=== PATIENT | female | born 1980 | race Caucasian/White ===

== ENCOUNTER 2016-03-10 05:34 | Inpatient (IN) | payer BC ==
--- NOTE | 2016-03-07 19:21 | GHP ---
[f rep st] PREOP HISTORY AND PHYSICAL Amended report PLANNED PROCEDURE: Repeat low transverse section. INDICATION: Patient is a 35-year-old, 3, para 1-0-1-1, who had a growth ultrasound performed at 35 and 4/7 weeks for a history of an LGA baby. The patient, during that ultrasound, a prominent umbilical vein, possible umbilical varices was noted, and patient had a Maternal- Medicine consult which discussed that previous data has shown a correlation with intrauterine demise associated with umbilical vein varix. However, more recent literature is inconsistent with findings of this, but for this reason, recommendation is that the patient be delivered between 38 and 39 weeks gestation. The patient has a history of a previous low transverse section, so if her cervix is not favorable, she will proceed with a repeat low transverse section. The patient would like to have a vaginal after section, but is aware that if her cervix is not favorable, she would not be a candidate for induction. MEDICAL HISTORY: Significant for unexplained infertility, history of cervical dysplasia, asthma, hypothyroidism, history of pyelonephritis x1. MEDICATIONS: vitamins and iron. SURGICAL HISTORY: Egg retrieval x2, section, LEEP excision, cryo surgery. ALLERGIES: Latex. SOCIAL HISTORY: Patient is . 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 She denies tobacco, alcohol or drug use. FAMILY MEDICAL HISTORY: Noncontributory. 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 Period is every 28 days, lasting 5 days. She is a 3, para 1-0-1-1. In 2007, she had a voluntary termination of which was done with medication. In 2014, she had a primary low transverse section for arrest of descent of a 9 pounds, 6 ounce at 40 and 2/7 weeks. 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 Current was conceived by in vitro fertilization with male factor due to male factor infertility. 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 Patient does have a history of cervical dysplasia. She had cryosurgery and a LEEP in 2004. Repeat Paps have all been negative. The patient has a history of HPV, but no other sexually transmitted diseases. PHYSICAL EXAM: VITAL SIGNS: Stable. GENERAL APPEARANCE: She is alert and oriented x3. HEART: Rate is regular, regular. LUNGS: Clear to auscultation bilaterally. ABDOMEN: Gravid, nondistended, nontender. EXTREMITIES: Reveal no calf tenderness or edema. LABS: Blood type A positive, antibody screen negative. Rubella immune. GBS is still pending. HBsAg negative. HIV negative. Her 50 g glucose was 94. Most recent growth ultrasound was done with Maternal Medicine on March 02 which showed estimated weight of the 59th percentile. ASSESSMENT AND PLAN: A 35-year-old, 3, para 1-0-1-1, who will be 38 weeks gestation, who will have a repeat low transverse section for umbilical vein varix. The patient opted to have a vaginal after section prior to that, so she will be assessed for cervical dilation the day before her scheduled surgery. /[id number]/MODL Add acc#, 03/13/16, oneyda RICO
[2016-03-10] MEDS ORDERED: CITRIC ACID/SODIUM CITRATE 30 ML UDCUP PO ONE (05:59)
[2016-03-10] MEDS ORDERED: LR 500 ML IV ONE (05:59)
[2016-03-10] MEDS ORDERED: ceFAZolin 2 GM/DEXTROSE 100 ML IV ONE (05:59)
[2016-03-10] MEDS ORDERED: LR 1,000 ML IV SCH (06:00)
[2016-03-10 06:24] LABS: % IMMATURE GRANULYOCYTES 0.7 % (0.0-1.1); ABSOLUTE IMMATURE GRANULOCYTES 0.09 10^3/uL (0.00-0.10); ADD DIFF? NO; ADD MORPH? NO; ADD SCAN? NO; ATYPICAL LYMPHOCYTE FLAG 0 (0-99); FRAGMENT RBC FLAG 0 (0-99); HEMATOCRIT 33.9 % (38.0-47.0); HEMOGLOBIN 11.7 g/dL (12.6-16.3); LEFT SHIFT FLG 0 (0-99); LIPEMIA HEMOLYSIS FLAG 90 (0-99); MEAN CELL HEMOGLOBIN 30.2 pg (27.9-34.1); MEAN CELL HEMOGLOBIN CONCENTR. 34.5 g/dL (32.4-36.7); MEAN CELL VOLUME 87.6 fL (81.5-99.8); MEAN PLATELET VOLUME 10.2 fL (8.7-11.7); PLATELET CLUMPS FLAG 10 (0-99); PLATELET COUNT 332 10^3/uL (150-400); RED BLOOD CELL COUNT 3.87 10^6/uL (4.18-5.33); RED CELL DISTRIBUTION WIDTH 13.6 % (11.5-15.2)
[2016-03-10] MEDS ORDERED: fentaNYL 100 MCG/2 ML INJ ONE (07:28)
[2016-03-10] MEDS ORDERED: ONDANSETRON 4 MG/2 ML VIAL ONE (07:29)
[2016-03-10] MEDS ORDERED: morphINE PF 5 MG/10 ML INJ ONE (07:29)
[2016-03-10] MEDS ORDERED: OXYTOCIN 100 UNITS/10 ML VIAL ONE (07:38)
[2016-03-10] MEDS ORDERED: METOCLOPRAMIDE 10 MG/2 ML VIAL IVP PRN (07:42)
[2016-03-10] MEDS ORDERED: LABETALOL HCL 5 MG/ML 20 ML MDV IVP PRN (07:42)
[2016-03-10] MEDS ORDERED: PHENYLEPHRINE HCL 100 MCG/ML SYR IVP PRN (07:42)
[2016-03-10] MEDS ORDERED: MEPERIDINE 25 MG/ML SYR IVP PRN (07:42)
[2016-03-10] MEDS ORDERED: ONDANSETRON 4 MG/2 ML VIAL IVP PRN (07:42)
[2016-03-10] MEDS ORDERED: NALOXONE HCL 0.4 MG/ML INJ IVP PRN (07:42)
[2016-03-10] MEDS ORDERED: fentaNYL 100 MCG/2 ML INJ IVP PRN (07:42)
--- NOTE | 2016-03-10 07:42 | PREANESOB ---
Obstetric Pre-Anesthesia Info - General Info Proposed Procedure: Repeat C/S NPO Start Time: 19:00 : 2 Para: 1 - Info Status: Full Term, Marquez - Labor Status PIH: No Magnesium Sulfate in Use: No Section History: Repeat Indications for Current Section: Elective/Repeat Labor Epidural: No Anesthesia Allergies/Adverse Reactions: Allergy/AdvReac Type Severity Reaction Status Date / Time No Known Allergies Allergy Verified 01/12/16 20:21 Home Medications: Medication Instructions Recorded Albuterol Inhaler Hfa 2 puffs PRN 05/08/14 Flovent 110 MCG Hfa MDI (RX) 2 puffs BID 05/08/14 Vit27&Calcium/Iron/FA 1 tab PO DAILY 05/08/14 [] Levothyroxine [Synthroid] 88 mcg PO DAILY06 08/01/15 Zantac 75 03/10/16 Visit Medications: Generic Name Dose Route Start Last Admin Trade Name Freq PRN Reason Stop Dose Admin Lactated Ringer's 1,000 mls @ 125 mls/hr 03/10/16 06:00 Lr IV 09/06/16 05:59 CONT WALTER Discontinued Medications Generic Name Dose Route Start Last Admin Trade Name Freq PRN Reason Stop Dose Admin Citric Acid/Sodium Citrate 30 ml 03/10/16 05:59 03/10/16 07:33 Bicitra PO 03/10/16 06:00 30 ml ONCALL ONE Administration Fentanyl Confirm 03/10/16 07:28 Sublimaze Administered 03/10/16 07:29 Dose 100 mcg .ROUTE .STK-MED ONE Cefazolin Sodium/Dextrose 100 mls @ 200 mls/hr 03/10/16 05:59 03/10/16 07:34 Ancef 2 Gm (Premix) IV 03/10/16 06:28 100 mls ONCALL ONE Administration Lactated Ringer's 500 mls @ 0 mls/hr 03/10/16 05:59 Lr IV 03/10/16 06:00 ONCE ONE As Directed Morphine Sulfate Confirm 03/10/16 07:29 Morphine Pf 5 Mg/10 Ml Administered 03/10/16 07:30 Dose 5 mg .ROUTE .STK-MED ONE Ondansetron HCl Confirm 03/10/16 07:29 Zofran Administered 03/10/16 07:30 Dose 4 mg .ROUTE .STK-MED ONE Oxytocin Confirm 03/10/16 07:38 Pitocin Administered 03/10/16 07:39 Dose 100 units .ROUTE .STK-MED ONE - Focused Exam Height/Weight (Nursing): Height 167.64 cm Weight 84.822 kg Labs: 03/10/16 05:50 Patient ABO/Rh A POSITIVE 03/10/16 05:50
[2016-03-10] MEDS ORDERED: PHENYLEPHRINE HCL 100 MCG/ML SYR ONE (07:59)
[2016-03-10] MEDS ORDERED: LACTULOSE 20 GM/30 ML UDCUP PO PRN (09:23)
[2016-03-10] MEDS ORDERED: MAGNESIUM HYDROXIDE 30 ML UDCUP PO PRN (09:23)
[2016-03-10] MEDS ORDERED: BISACODYL 10 MG SUPP PR PRN (09:23)
[2016-03-10] MEDS ORDERED: SIMETHICONE 80 MG TAB CHEW PO PRN (09:23)
[2016-03-10] MEDS ORDERED: POLYETHYLENE GLYCOL 3350 17 GM PKT PO PRN (09:23)
[2016-03-10] MEDS ORDERED: ACETAMINOPHEN 325 MG TAB PO PRN (09:23)
--- NOTE | 2016-03-10 09:23 | OBPROC ---
- Delivery Pre-op Diagnoses: IUP 38 weeks, hx prior section, umbilical vein varix Post-op Diagnoses: same plus occiput posterior Procedure: Repeat, Low Transverse Surgeon: Maribell Kern Traffic Monitor Specialist: Lily Lopez Anesthesiologist: Shankar Rosado Anesthesia: Spinal Complications: None EBL: 800 - [place] Info A Delivery Date: 03/10/16 Delivery Time: 08:22 Sex of : Female Score (1 Min): 9 Score (5 Min): 9
--- NOTE | 2016-03-10 09:41 | POSTANESTH ---
Post Anesthetic Evaluation Cardiovascular Status: Normal, Stable, Similar to Pre-Op Cond Respiratory Status: Normal, Stable, Similar to Pre-op Cond. Level of Consciousness/Mental Status: Can Participate in Eval, Alert and Oriented Pain Control: Adequate, Prn Tx Ordered Nausea/Vomiting Control: Adequate, Prn Tx Ordered Complications Possibly Related to Anesthesia: None Noted
[2016-03-10] MEDS ORDERED: KETOROLAC 30 MG/1 ML SDV ONE (09:46)
[2016-03-10] MEDS: KETOROLAC 30 MG/1 ML SDV IVP SCH ×3 (09:56→22:56)
--- NOTE | 2016-03-10 10:40 | GOP ---
[f rep st] OPERATIVE REPORT DATE OF OPERATION: 03/10/2016 SURGEON: Maribell Kern DO ONLINE MEDIA BUYER: DOMONIQUE Weathers ANESTHESIA: Spinal with Duramorph. ANESTHESIOLOGIST: Shankar Rosado MD PREOPERATIVE DIAGNOSIS: 1. Intrauterine at 38 weeks gestation. 2. History of previous low transverse section. 3. Umbilical vein varix. POSTOPERATIVE DIAGNOSIS: 1. Intrauterine at 38 weeks gestation. 2. History of previous low transverse section. 3. Umbilical vein varix. 4. Occiput posterior. PROCEDURE PERFORMED: Repeat low transverse section. FINDINGS: 1. Viable female in the cephalic occiput posterior presentation delivered at 8:22 a .m. Apgars were 9 and 9. 2. Intact placenta with 3-vessel cord. 3. Normal ovaries, uterus and tubes. ESTIMATED BLOOD LOSS: 800 cc. INDICATIONS: Patient is a 35-year-old, 3, para 1-0-1-1, who was 38 weeks gestation. She has a history of previous low transverse section for arrest of descent after pushing for 4 hour s. The patient had a growth ultrasound done around 36 weeks which showed an incidental finding of an umbilical vein varix. The patient had a Maternal- Medicine consult which reviewed the historic al thought that umbilical vein varix were associated with intrauterine demise, but recent data possibly proves that this is not the case. However, because of the questionable association with int rauterine demise, recommendation was made to deliver at 38 weeks. Risks and benefits of the pr ocedure were reviewed extensively with the patient. The patient was properly consented. DESCRIPTION OF PROCEDURE: The patient was taken to the operating room with intravenous fluids in crystal ce. She was then placed on the operating room table where spinal anesthesia was obtained. She was t hen repositioned into the dorsal supine position with a leftward tilt. A Barnett catheter was then crystal katy. Venodyne's were placed on her lower extremities and she was prepped and draped in normal steril e fashion. Anesthesia was assessed and found to be adequate. A Pfannenstiel skin incision was then made 2 fingerbreadths above the pubic symphysis. The incision was then carried through to the underl melquiades layer of fascia with the Bovie. The fascia was then nicked in the midline and the fascial incis ion was extended laterally. The superior aspect of the fascial incision was then grasped with Susan 's, tented up, and the underlying rectus muscle dissected off bluntly with the Bovie. Attention was then turned to the inferior aspect of the fascial incision, which in a similar fashion, was grasped w ith Susan's, tented up, and the underlying rectus muscle dissected off bluntly with the Bovie. The rectus muscle was then in the midline. The peritoneum was identified, tented up, and enter ed sharply with the Metzenbaum scissors. The incision was extended superiorly and inferiorly with ex cellent visualization of the bladder. The bladder blade was then inserted. The vesicouterine perito neum was identified, tented up, and entered sharply with the Metzenbaum scissors. The incision was e xtended laterally and a bladder flap was created digitally. The bladder blade was then reinserted. The uterus was then incised in low transverse fashion with the scalpel. The incision was extended la terally with bandage scissors. Membranes were artificially ruptured. At time of hysterotomy a large amount of clear fluid was noted. The infant was then delivered through the incision and noted to be in the occiput posterior presentation. Cord was clamped x2 and cut. Cord blood was obtained, and t he was handed off to awaiting nurse practitioner. Intact placenta with 3-vessel cord delivered without difficulty. Attempt was made to exteriorize the uterus. However, it was noted to be very firm and not easily removed from the uterus so a bladder blade was then inserted. A moist l aparotomy sponge was used to clean out the inside and the lower uterine segment. No remaining produc ts of conception were noted. An 0 Vicryl stitch was used to close the uterine incision. A 2nd 0 Jon ryl stitch was used to imbricate the uterine incision. Hemostasis was achieved. The left round liga ment was then used to rotate the uterus, and the ovary and fallopian tube were unremarkable. The alonso e was done on the contralateral side. Normal ovaries and tubes were noted. The hysterotomy remained hemostatic. Peritoneum was reapproximated with 3-0 Vicryl in a running fashion. Rectus muscle was reapproximated with 2-0 Vicryl in a running fashion. The fascia was closed with 0 Vicryl in a runnin g fashion. Angel's tissue was reapproximated with 2-0 Vicryl in a running fashion. The subcuticula r tissue was closed with 3-0 Vicryl in a running subcuticular fashion. Steri-Strips were then applie d. Sponge, lap and needle counts were correct x2. The patient was transferred to recovery room in s table condition. /[id number]/MODL
[2016-03-10] MEDS: HYDROCODONE/APAP 5/325 TAB PO PRN ×2 (14:41→20:38)
[2016-03-10] MEDS: DOCUSATE SODIUM 100 MG CAP PO PRN (14:41)
--- NOTE | 2016-03-10 18:46 | SOAPPROG ---
SOAP Progress Note Assessment/Plan: Assessment: pod#0 s/p RLTCS breast feeding Plan: routine post operative and post care 03/10/16 18:45 Subjective: patient is doing well. pain is well controlled. normal lochia. breast feeding is going well. tolerating regular diet. Objective: Vital Signs Temp Pulse Resp BP Pulse Ox 37.1 C 94 16 106/58 L 96 03/10/16 13:53 03/10/16 13:53 03/10/16 13:53 03/10/16 13:53 03/10/16 17:00 Laboratory Results 03/10/16 05:50 03/09/16 03/10/16 03/11/16 05:59 05:59 05:59 Intake Total 240 Output Total 300 Balance -60 Physical Exam - Physical Exam General Appearance: WD/WN, alert, no apparent distress Respiratory: chest non-tender, lungs clear, normal breath sounds Cardiac/Chest: normal peripheral pulses, regular rate, rhythm Abdomen: normal bowel sounds, non-tender, soft, other (fundus firm and non tender) Skin: normal color, warm/dry, other (incision clean dry and intact) Extremities: normal range of motion, non-tender, normal inspection, normal capillary refill Neuro/Psych: no motor/sensory deficits, alert, normal mood/affect, oriented x 3 ICD10 Worksheet Patient Problems: Problems Problem Status Diagnosed Arrest of descent, delivered, current hospitalization Acute delivery delivered Acute
[2016-03-10] MEDS: SENNOSIDES/DOCUSATE SODIUM TAB PO SCH (22:28)
[2016-03-11] MEDS: HYDROCODONE/APAP 5/325 TAB PO PRN ×6 (00:46→21:24)
[2016-03-11] MEDS: KETOROLAC 30 MG/1 ML SDV IVP SCH (04:51)
[2016-03-11] MEDS: SENNOSIDES/DOCUSATE SODIUM TAB PO SCH ×2 (09:01→21:24)
[2016-03-11] MEDS: IBUPROFEN 600 MG TAB PO PRN ×3 (11:01→23:08)
--- NOTE | 2016-03-11 11:08 | SOAPPROG ---
SOAP Progress Note Assessment/Plan: Assessment: pod#1 s/p RLTCS breast feeding anemia Plan: routine post operative and post care iron 03/11/16 11:07 Subjective: patient is doing well. pain is well controlled. normal lochia. breast feeding is going well. passing gas. martínez out but hasnt voided yet. denies headache and changes in vision. Objective: Vital Signs Temp Pulse Resp BP Pulse Ox 36.6 C 94 18 122/73 H 99 03/11/16 08:20 03/11/16 08:20 03/11/16 08:20 03/11/16 08:20 03/11/16 08:20 Laboratory Results 03/11/16 05:10 03/10/16 03/11/16 03/12/16 05:59 05:59 05:59 Intake Total 240 Output Total 2150 450 Balance -1910 -450 Physical Exam - Physical Exam General Appearance: WD/WN, alert, no apparent distress Respiratory: chest non-tender, lungs clear, normal breath sounds Cardiac/Chest: normal peripheral pulses, regular rate, rhythm Abdomen: normal bowel sounds, non-tender, soft, other (fundus firm and non tender) Skin: normal color, warm/dry, other (incision covered) Extremities: normal range of motion, non-tender, normal inspection, normal capillary refill Neuro/Psych: no motor/sensory deficits, alert, normal mood/affect, oriented x 3 ICD10 Worksheet Patient Problems: Problems Problem Status Diagnosed Arrest of descent, delivered, current hospitalization Acute delivery delivered Acute
[2016-03-11] MEDS: IRON POLYSAC/IRON HEME 28 MG TAB PO SCH (11:52)
[2016-03-11] MEDS: DOCUSATE SODIUM 100 MG CAP PO PRN (21:24)
[2016-03-12 01:33] VITALS: RESP 16; O2SAT 95
[2016-03-12] MEDS: HYDROCODONE/APAP 5/325 TAB PO PRN ×3 (01:48→10:14)
[2016-03-12] MEDS: IBUPROFEN 600 MG TAB PO PRN ×2 (05:50→12:22)
[2016-03-12] MEDS: SENNOSIDES/DOCUSATE SODIUM TAB PO SCH (08:47)
[2016-03-12] MEDS: IRON POLYSAC/IRON HEME 28 MG TAB PO SCH (08:47)
[2016-03-12 08:55] VITALS: BP 119/76; PULSE 73; TEMP 97.1
--- NOTE | 2016-03-12 10:03 | SOAPPROG ---
SOAP Progress Note Assessment/Plan: Assessment: pod#1 s/p RLTCS breast feeding anemia Plan: routine post operative and post care iron 03/12/16 09:57 Subjective: patient is doing well. pain is well controlled. normal lochia. denies headache and changes in vision. ready to go home. passing gas. no bowel movement yet. voiding without difficulty. Objective: Vital Signs Temp Pulse Resp BP Pulse Ox 36.2 C 73 16 119/76 95 03/12/16 08:15 03/12/16 08:15 03/12/16 08:15 03/12/16 08:15 03/12/16 08:15 Laboratory Results 03/11/16 05:10 03/11/16 03/12/16 03/13/16 05:59 05:59 05:59 Intake Total 240 Output Total 2150 700 Balance -1910 -700 Physical Exam - Physical Exam General Appearance: WD/WN, alert, no apparent distress Respiratory: chest non-tender, lungs clear, normal breath sounds Cardiac/Chest: normal peripheral pulses, regular rate, rhythm Abdomen: normal bowel sounds, non-tender, soft, other (fundus firm and non tender) Skin: normal color, warm/dry, other (incision clean dry and intact) Extremities: normal range of motion, non-tender, normal inspection, normal capillary refill Neuro/Psych: no motor/sensory deficits, alert, normal mood/affect, oriented x 3 ICD10 Worksheet Patient Problems: Problems Problem Status Diagnosed Arrest of descent, delivered, current hospitalization Acute delivery delivered Acute
== END 2016-03-12 12:30 | disposition home or self-care (01) | DRG 766 ==
LOC: FLD 05:34 → FOB 10:45
PROVIDERS: ADMIT Obstetrics & Gynecology; ATTEND Obstetrics & Gynecology
PROC: 10D00Z1 Extraction of Products of Conception, Low, Open Approach (ICD-10-PCS; principal; 2016-03-10)
DX: O34.219 Maternal care for unspecified type scar from previous cesarean delivery (principal); Z37.0 Single live birth; Z3A.38 38 weeks gestation of pregnancy; O09.523 Supervision of elderly multigravida, third trimester; O87.4 Varicose veins of lower extremity in the puerperium
CPT/HCPCS: J0690; J1885; J2274; J2370; J2405; J2590; J3010

== ENCOUNTER 2016-04-27 06:01 | Day surgery (SDC) | payer BC ==
--- NOTE | 2016-04-26 18:20 | GHP ---
[f rep st] PREOP HISTORY AND PHYSICAL DATE OF PLANNED PROCEDURE: 04/27/2016 INDICATIONS: Patient is a 35-year-old, 3, para 2011, who presented for her 6-week visit with complaint of persistent vaginal bleeding. She had a transvaginal ultrasound performed which showed a 2 x 2 x 1 cm retained products of conception at the fundus of the uterus. Management options were reviewed with the patient. The patient hoped to avoid having surgery; however, she called later stating she wanted to be done with it and have the procedure scheduled. Risks and benefits of the procedure were reviewed with the patient, and the patient will be consented at the time of surgery. MEDICAL HISTORY: Unexplained infertility, history of cervical dysplasia, asthma , hypothyroidism, history of pyelonephritis x1. MEDICATIONS: vitamins. SURGICAL HISTORY: Egg retrieval x2, section x2, LEEP excision, cryosurgery of cervix. ALLERGIES: Latex. SOCIAL HISTORY: Patient is . 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 She denies tobacco, alcohol, and drug use. FAMILY MEDICAL HISTORY: Noncontributory. 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 She is a 3, para 2012. She had a voluntary termination of in 2007. In 2014, she had a primary low transverse section for arrest of descent of a 9 pound 6 ounce at 40-2/7 weeks' gestation. That was conceived by IVF. On 03/10/2016, she had a repeat low transverse section for umbilical vein varix. That was also conceived by IVF. Patient does have a history of cervical dysplasia and she has had a LEEP, but most recent Pap smears have been negative. PHYSICAL EXAMINATION: VITAL SIGNS: Stable. GENERAL APPEARANCE: She is alert and oriented x3. HEART: Rate is regularly regular. LUNGS: Clear to auscultation bilaterally. ABDOMEN: Soft, nondistended, nontender. EXTREMITIES : Reveal no calf tenderness or edema. PELVIC: Reveals a mobile uterus with a small amount of blood within the vagina, and a 2 x 2 x 1 cm retained products of conception at the fundus. ASSESSMENT AND PLAN: A 35-year-old, 3, para 2011, with retained products of conception. She will undergo a suction dilation and curettage. Risks and benefits were reviewed with the patient, and patient was properly consented. /[id number]/MODL MTDD
[2016-04-27 06:44] LABS: % IMMATURE GRANULYOCYTES 0.2 % (0.0-1.1); ABSOLUTE IMMATURE GRANULOCYTES 0.02 10^3/uL (0.00-0.10); ADD DIFF? NO; ADD MORPH? NO; ADD SCAN? NO; ATYPICAL LYMPHOCYTE FLAG 20 (0-99); FRAGMENT RBC FLAG 0 (0-99); HEMOGLOBIN 13.4 g/dL (12.6-16.3); LEFT SHIFT FLG 0 (0-99); LIPEMIA HEMOLYSIS FLAG 80 (0-99); MEAN CELL HEMOGLOBIN 29.3 pg (27.9-34.1); MEAN CELL HEMOGLOBIN CONCENTR. 33.5 g/dL (32.4-36.7); MEAN CELL VOLUME 87.3 fL (81.5-99.8); MEAN PLATELET VOLUME 9.2 fL (8.7-11.7); PLATELET CLUMPS FLAG 0 (0-99); PLATELET COUNT 369 10^3/uL (150-400); RED BLOOD CELL COUNT 4.58 10^6/uL (4.18-5.33); RED CELL DISTRIBUTION WIDTH 14.1 % (11.5-15.2)
[2016-04-27] MEDS ORDERED: LR 1,000 ML IV ONE (08:00)
[2016-04-27] MEDS ORDERED: DOXYCYCLINE INJ 100 MG in D5W 250 ML IV ONE (08:00)
[2016-04-27] MEDS ORDERED: MIDAZOLAM 2 MG/2 ML VIAL ONE (08:07)
[2016-04-27] MEDS ORDERED: PROPOFOL/EMULSION 500 MG/50 ML BOTTLE IV ONE ×2 (08:08→09:02)
[2016-04-27] MEDS ORDERED: fentaNYL 100 MCG/2 ML INJ ONE ×2 (08:08→08:41)
[2016-04-27] MEDS ORDERED: ONDANSETRON 4 MG/2 ML VIAL ONE (09:45)
[2016-04-27] MEDS ORDERED: KETOROLAC 30 MG/1 ML SDV ONE (10:09)
[2016-04-27] MEDS ORDERED: KETOROLAC 30 MG/1 ML SDV IVP ONE (11:00)
--- NOTE | 2016-04-28 03:40 | GOP ---
[f rep st] OPERATIVE REPORT DATE OF OPERATION: 04/27/2016 SURGEON: Maribell Kern DO ANESTHESIA: General with LMA. ANESTHESIOLOGIST: Amaris Boateng MD. PREOPERATIVE DIAGNOSIS: Retained placenta. POSTOPERATIVE DIAGNOSIS: Retained placenta plus suspected uterine perforation. PROCEDURE PERFORMED: Suction dilation and curettage. FINDINGS: 1. Mobile retroverted uterus with no adnexal masses. 2. Transvaginal ultrasound confirms retained products of conception. A transabdominal ultrasound wa s performed intraoperatively by Denita Rodriguez nursing tech from [facility]. SPECIMENS: Products of conception. Retained placenta. ESTIMATED BLOOD LOSS: 10 cc. INDICATIONS: Patient is a 35-year-old, 3, para 2-0-1-2, who presented for her 6 week postpa rtum visit with complaint of persistent vaginal bleeding. She had a vaginal ultrasound performed wh ich showed a 2 x 2 x 1 cm retained products of conception at the fundus of the uterus. Management o ptions were reviewed with the patient. The patient elected to proceed with a suction dilation and c urettage. Risks and benefits of the procedure were reviewed with the patient. The patient was prop erly consented. DESCRIPTION OF PROCEDURE: The patient was taken to the operating room with intravenous fluids in pl bonilla. She was given doxycycline intravenously and placed on the operating room table in the dorsal s upine position. She was then given conscious sedation and repositioned into the dorsal lithotomy po sition with the Yellofin stirrups, and prepped and draped in the normal sterile fashion. Exam under anesthesia revealed a mobile retroverted uterus with no adnexal masses. A speculum was then placed in the patient's vagina. An Allis clamp was used to grasp the anterior lip of the cervix, and the cervix was then carefully dilated to allow for the introduction of a 10 curved suction curette. Dur ing the sounding, it was sounding greater than the pelvic exam would suggest the uterus was, so a tr ansabdominal and transvaginal ultrasound was performed. The sound was not noted to be in the endome trial cavity. I called our office at [facility] and had our nursing tech, scott Barger and perform a bedside ultrasound. Under ultrasound guidance, I was able to then dilate the cervix to 10 cm, and it was suspected that a perforation of the uterus was performed in the anterior porti on of the uterus, where the hysterotomy was. This was done due to an anterior then posterior deflec tion of the cervical canal. Under direct visualization, a suction curettage was performed gently at the fundus, and placental tissue was then withdrawn. Care was taken to not perform a suction when going past the area of perforation. The transvaginal ultrasound confirmed a thin endometrial stripe . Bleeding was noted to be minimal. A transvaginal ultrasound was performed and a scant amount of free fluid was noted within the pelvis. Because of the suspected anterior perforation, I performed a straight catheterization of the bladder. The urine was noted to be very clear and no blood tinge was noted. This was performed after cleaning the urethra with Betadine. Instruments were then krantih daniel from the patient's vagina. The patient was returned to the dorsal supine position where she was easily awoken from anesthesia. Sponge count was correct. The patient was transported to the [facility] room in stable condition. /[id number]/MODL
== END 2016-04-27 12:15 | disposition home or self-care (01) ==
LOC: FOBOP 06:01
PROVIDERS: ATTEND Obstetrics & Gynecology
PROC: 10D17ZZ Extraction of Products of Conception, Retained, Via Natural or Artificial Opening (ICD-10-PCS; principal; 2016-04-27)
DX: O73.1 Retained portions of placenta and membranes, without hemorrhage (principal); N97.9 Female infertility, unspecified
CPT/HCPCS: J1885; J2250; J2405; J2704; J3010

== ENCOUNTER 2018-06-28 07:04 | Inpatient (IN) | payer OTHER ==
--- NOTE | 2018-06-24 12:03 | GHP ---
[f rep st] PREOP HISTORY AND PHYSICAL DATE OF ADMISSION: 06/28/2018 Date of surgery slated for 06/28/2018 on the Obstetric Service. HISTORY UPON PRESENTATION: The patient is a 37-year-old G4, P2, A1 at 39+ weeks ' gestation upon presentation for planned section on June 28. The patient's due date is on 07/02/2018 by last menstrual period consistent with an 8-week ultrasound. The patient desires a planned section due to a history of 2 previous sections. Upon presentation, the patient reports positive movements. However, has been less during the last several weeks and the patient has had multiple NSTs for surveillance. Bag of water intact. Occasional Ry Borges contractions. No bleeding. The patient has been thoroughly counseled about the risks and benefits of repeat section and the consent form has been signed. The patient is offered a BS for permanent sterilization and declined. The patient has anxiety about the surgery due to her last , at which time her spinal level was a bit high and the patient had anxiety about her respirations as her sensory was altered. The patient will talk to the anesthesiologist prior to the surgery. The patient also was very bothered and nauseated by the Bicitra preoperatively, and I told her we could use alternatives. CARE: The patient has been followed by [facility] since 8 weeks' gestation. The patient had IVF x2 to conceive the previous pregnancies and the current was by spontaneous conception. The patient and her were happy with the surprise. The patient's care has been relatively uncomplicated. The patient's last menstrual period was 09/19, however, the first ultrasound showed size less than dates by 6 days and the due date was changed to 07/02/2018. The patient had stopped taking her Synthroid for hypothyroidism prior to conception and her TSH levels were monitored through the and were normal and so the patient was not re-initiated on her thyroid. The patient had a 20-week anatomy ultrasound that was not complete for anatomy, however, this was repeated on the following visit and all the anatomy was completely cleared for abnormalities. The patient does have an anterior placenta, but no signs of previa. The patient is having reflux and trouble sleeping through the and has managed in the third trimester with Tylenol PM and Zantac. NSTs have been performed in the last month due to perception of decreased movement. NSTs have been reactive. LABS: Maternal blood type A positive with negative antibody screen. RPR nonreactive. Rubella immune. Hepatitis B surface antigen negative. HIV negative. TSH levels each trimester have fluctuated from 0.9 to 3.6. The patient had Zika testing, which was negative due to a history of travel to [place] 6 months prior to conception. Urine drug screen was negative. Urinalysis and culture negative. Pap smear negative. Gonorrhea and chlamydia negative. Verifi testing was negative. One-hour Glucola was normal. Hematocrit through the has gone from 39 down to 36. Varicella immune. Parvovirus immune. GBS culture negative. MSAFP was negative. PAST MEDICAL HISTORY: Advanced maternal age, hypothyroidism for which the patient has been monitored with her TSH levels. Not currently on medication, but previous to was on 88 mcg a day, history of abnormal Pap smears with a LEEP performed in 2004, as well as therapy. The patient has had ASCUS Paps off and on since that time. History of infertility requiring IVF x2 in the past. History of asthma diagnosed in childhood and occasionally uses an inhaler and Flovent. Patient had pyelonephritis once in college. PAST SURGICAL HISTORY: sections x2 in 2014 and 2016, a D and C after the 2017 delivery secondary to retained products of conception, IVF procedures including egg retrieving, tooth extraction in 2018. PAST HISTORY: In 2007 a terminated first trimester. In April 2014, a male delivered at 9 pounds after a labor attempt with arrest of descent. This was 40-weeks and 2 days, and the baby was delivered by section - a viable female at 7 pounds 8 ounces at 38 weeks gestation with a umbilical vein varices noted. SOCIAL HISTORY: The patient is , lives with her and 2 children. 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 The patient is a nonsmoker. No alcohol. No drug use. CURRENT MEDICATIONS: Zantac 150 mg and 2 Tylenol PMs nightly for heartburn and insomnia. Albuterol p.r.n. up to 3 times a week, Flovent rarely, vitamin daily, baby aspirin has been discontinued weeks ago. ALLERGIES: The patient has no known drug allergies. PHYSICAL EXAM: GENERAL: The patient is a well-developed, well-nourished white female in no physical distress, other than she states. VITAL SIGNS: Patient is clinically afebrile at the time of preop, blood pressure 122/68. The patient's weight 187 pounds. Negative proteinuria and negative glucosuria. LUNGS: Clear to auscultation. CARDIOVASCULAR: Regular rate and rhythm. ABDOMEN: Shows a fundal height of 39 cm. NSTs performed, there is a reactive pattern with baseline in the 130s with good gpkl-he-rowy variability and acceleration. There are no decelerations noted. EXTREMITIES: Nontender with mild edema. PELVIC: Deferred. ASSESSMENT: Intrauterine at 39+ weeks' gestation for a planned repeat section x3. tubal declined. History of asthma with occasional inhaler use. History of hypothyroidism unmedicated through the with normal levels. GBS culture negative, A positive, rubella immune. PLAN: Patient will have a repeat section on 06/28/2018 on the Obstetric Service. The patient will discuss with Anesthesia the spinal level during her last procedure and ways to combat reflux other than the Bicitra. The patient will have preoperative antibiotics and have on SCDs throughout the procedure. /[id number]/MODL MTDD
[2018-06-28] MEDS ORDERED: LR 500 ML IV ONE (07:14)
[2018-06-28] MEDS ORDERED: ceFAZolin 2 GM/DEXTROSE 100 ML IV ONE (07:14)
[2018-06-28] MEDS: LR 1,000 ML IV SCH ×2 (08:00→17:40)
[2018-06-28 08:14] LABS: PLATELET COUNT 337 10^3/uL (150-400)
[2018-06-28] MEDS ORDERED: FAMOTIDINE 20 MG/NACL 50 ML IV ONE (08:41)
[2018-06-28] MEDS ORDERED: METOCLOPRAMIDE 10 MG/2 ML VIAL IVP ONE (08:41)
[2018-06-28] MEDS ORDERED: KETOROLAC 30 MG/1 ML SDV ONE (08:43)
[2018-06-28] MEDS ORDERED: morphINE PF 5 MG/10 ML INJ ONE (08:43)
[2018-06-28] MEDS ORDERED: OXYTOCIN 100 UNITS/10 ML VIAL ONE (08:43)
[2018-06-28] MEDS ORDERED: DEXAMETHASONE 4 MG/ML VIAL ONE (08:43)
[2018-06-28] MEDS ORDERED: ONDANSETRON 4 MG/2 ML VIAL ONE ×2 (08:43→10:05)
[2018-06-28] MEDS ORDERED: GLYCOPYRROLATE 0.2 MG/1 ML VIAL ONE (09:22)
--- NOTE | 2018-06-28 09:39 | PREANESOB ---
Obstetric Pre-Anesthesia Info - General Info Proposed Procedure: repeat c/s : 3 Para: 2 ELI: 07/02/18 Gestational Age: 39 week(s) and 3 day(s) - Info Status: Full Term Monitors: External FHR Pattern: Reassuring - Labor Status Section History: Repeat Indications for Current Section: Elective/Repeat Labor Epidural: No Anesthesia Allergies/Adverse Reactions: Allergy/AdvReac Type Severity Reaction Status Date / Time No Known Allergies Allergy Verified 01/12/16 20:21 Home Medications: Medication Instructions Recorded Albuterol Inhaler Hfa 2 puffs PRN 05/08/14 Flovent 110 MCG Hfa MDI (RX) 2 puffs BID 05/08/14 Vit27&Calcium/Iron/FA 1 tab PO DAILY 05/08/14 [] Levothyroxine [Synthroid 88 mcg 88 mcg PO DAILY06 08/01/15 (*)] Zantac 75 03/10/16 Hydrocodone/APAP 5/325 [Altus 1 - 2 tab PO Q4HRS PRN #30 tab 03/12/16 5/325 (*)] Ibuprofen [Motrin (*)] 600 mg PO Q6HRS PRN #30 tab 03/12/16 Iron Polysacch/Iron Heme Polyp 28 mg PO DAILY #0 tab 03/12/16 [Bifera] Visit Medications: Generic Name Dose Route Start Last Admin Trade Name Freq PRN Reason Stop Dose Admin Lactated Ringer's 1,000 mls @ 125 mls/hr 06/28/18 07:14 06/28/18 08:00 Lr IV 06/29/18 07:13 1,000 mls CONT WALTER Administration Discontinued Medications Generic Name Dose Route Start Last Admin Trade Name Freq PRN Reason Stop Dose Admin Cefazolin Sodium/Dextrose 100 mls @ 200 mls/hr 06/28/18 07:14 06/28/18 08:58 Ancef IV 06/28/18 07:43 100 mls ONCALL ONE Administration Protocol Lactated Ringer's 500 mls @ 0 mls/hr 06/28/18 07:14 Lr IV 06/28/18 07:15 ONCE ONE As Directed Famotidine/Sodium Chloride 50 mls @ 200 mls/hr 06/28/18 08:41 06/28/18 08:49 Pepcid 20 Mg (Premix) IV 06/28/18 08:55 50 mls ONCE ONE Administration Metoclopramide HCl 10 mg 06/28/18 08:41 06/28/18 08:56 Reglan Injection IVP 06/28/18 08:42 10 mg ONCE ONE Administration - Anesthesia History Response to Local Anesthetics: Normal Anesthesia & Operative History: Other (Specify) (PONV) - Vital Signs Height/Weight (Nursing): Height 170.18 cm Weight 83.915 kg - Focused Exam Mallampati Score: Class 2 Mouth exam: normal dental/mouth exam Pulmonary: no respiratory distress Cardiovascular: regular rate and rhythym Labs: 06/28/18 07:48 Patient ABO/Rh A POSITIVE 06/28/18 07:48 - Plan Anesthetic Plan: SAB with IT morphine Consent Signed and on Chart: Yes Patient/Guardian Understands and Agrees to Plan: Yes
[2018-06-28] MEDS ORDERED: fentaNYL 100 MCG/2 ML INJ ONE (10:26)
[2018-06-28] MEDS ORDERED: MIDAZOLAM 2 MG/2 ML VIAL ONE (10:28)
[2018-06-28] MEDS ORDERED: BUPIVACAINE 0.25% 30 ML SDV ONE (10:29)
[2018-06-28] MEDS ORDERED: HYDROmorphONE/DILAUDID 1 MG/ML INJ IVP PRN (10:46)
[2018-06-28] MEDS ORDERED: HYDROCODONE/APAP 5/325 TAB PO PRN (10:46)
[2018-06-28] MEDS ORDERED: fentaNYL 100 MCG/2 ML INJ IVP PRN (10:46)
[2018-06-28] MEDS ORDERED: ONDANSETRON 4 MG/2 ML VIAL IVP PRN ×2 (10:46→10:48)
[2018-06-28] MEDS ORDERED: NALOXONE HCL 0.4 MG/ML INJ IVP PRN ×2 (10:46→10:48)
--- NOTE | 2018-06-28 10:56 | POSTANESTH ---
Post Anesthetic Evaluation Cardiovascular Status: Normal, Stable Respiratory Status: Normal, Stable Level of Consciousness/Mental Status: Can Participate in Eval Pain Control: Adequate, Prn Tx Ordered Nausea/Vomiting Control: Adequate, Prn Tx Ordered Complications Possibly Related to Anesthesia: None Noted
[2018-06-28] MEDS ORDERED: MAGNESIUM HYDROXIDE 30 ML UDCUP PO PRN (11:13)
[2018-06-28] MEDS ORDERED: LACTULOSE 20 GM/30 ML UDCUP PO PRN (11:13)
[2018-06-28] MEDS ORDERED: POLYETHYLENE GLYCOL 3350 17 GM PKT PO PRN (11:13)
[2018-06-28] MEDS ORDERED: BISACODYL 10 MG SUPP PR PRN (11:13)
[2018-06-28] MEDS ORDERED: KETOROLAC 30 MG/1 ML SDV IVP SCH (11:15)
--- NOTE | 2018-06-28 11:17 | PDHPUP ---
History & Physical Update H&P update statement: This history and physical update is based on an assessment of the patient which was completed after admission or registration (within 24 hours), but prior to the surgery/procedure. H&P update: no change in patient's condition since H&P completed
--- NOTE | 2018-06-28 11:21 | OBDEL ---
Info Type: Repeat Presentation at Delivery: Vertex L&D Analgesia/Anesthesia Type: IV Narcotics (fentanyl 25 mcg in OR), Spinal ( with duramorph) GBS+: No Intrapartum Medications: Generic Name Dose Route Start Last Admin Trade Name Freq PRN Reason Stop Dose Admin Lactated Ringer's 1,000 mls @ 125 mls/hr 06/28/18 07:14 06/28/18 08:00 Lr IV 06/29/18 07:13 1,000 mls CONT WALTER Administration Discontinued Medications Generic Name Dose Route Start Last Admin Trade Name Freq PRN Reason Stop Dose Admin Cefazolin Sodium/Dextrose 100 mls @ 200 mls/hr 06/28/18 07:14 06/28/18 08:58 Ancef IV 06/28/18 07:43 100 mls ONCALL ONE Administration Protocol Famotidine/Sodium Chloride 50 mls @ 200 mls/hr 06/28/18 08:41 06/28/18 08:49 Pepcid 20 Mg (Premix) IV 06/28/18 08:55 50 mls ONCE ONE Administration Metoclopramide HCl 10 mg 06/28/18 08:41 06/28/18 08:56 Reglan Injection IVP 06/28/18 08:42 10 mg ONCE ONE Administration Vaginal Delivery - Labor and Delivery Placenta Delivery Date: 06/28/18 Placenta Delivery Time: 06:45 Operative Report - Delivery Pre-op Diagnoses: IUP at 39+ wks, PCS x 2 Post-op Diagnoses: same, delivered History of Prior Section: Yes Number of Prior Sections: 2 Nulliparous Prior to Delivery: No Indications for Prior Section: Arrest of Descent, Elective/Repeat Indications for Current Section: Elective/Repeat Procedure: Scheduled, Low Transverse Surgeon: Basilia Duncan Flow Nurse: Lily Lopez Anesthesiologist: Agustin Burrell Complications: None Findings: normal uterus, tubes and ovaries. visceral peritoneum very adherent to DOROTA so bladder flap not developed but bldr felt low out of operative area. slight mec upon entry into uterus. bulb suction on hysterotomy. No NC. Baby robust after delivery. Delayed cord clamp for 1 min. Plac removed intact. hysterotomy closed with db layer. good hemostasis. clear UOP at end of procedure. normal closure. IV Fluid (ml): 2,500 EBL: 1000 Data ELI: 07/02/18 Gestational Age: 39 week(s) and 3 day(s) Marquez Delivery Date: 06/28/18 Delivery Time: 09:42 Sex of : Male Weight (gm): 8960 kg Score (1 Min): 8 Score (5 Min): 9 ICD10 Worksheet Patient Problems: Problems Problem Status Onset S/P repeat low transverse Acute
[2018-06-28] MEDS: ACETAMINOPHEN 325 MG TAB PO SCH ×3 (11:35→23:35)
[2018-06-28] MEDS: oxyCODONE IR 5 MG TAB PO PRN ×2 (13:36→18:05)
[2018-06-28] MEDS: KETOROLAC 30 MG/1 ML SDV IVP SCH ×2 (16:49→23:36)
[2018-06-28] MEDS: SENNOSIDES/DOCUSATE SODIUM TAB PO SCH (19:28)
[2018-06-28] MEDS ORDERED: PROMETHAZINE HCL 25 MG in LR 1,000 ML IV ONE (20:30)
[2018-06-28] MEDS ORDERED: PROMETHAZINE HCL 25 MG/ML INJ IVP ONE ×2 (20:30)
--- NOTE | 2018-06-28 21:14 | OBPP ---
Progress Note Assessment/Plan: Assessment: POD 1/2 from RCS x3 Plan: recent n/v, cont normal observation. - check hct in am 06/28/18 21:03 Subjective/ Course: 06/28/18 21:05 PT SEEN APPROX 6:10 AFTER N/V AT 5:30.....WAS GIVEN ZOFRAN AND O2 AND FEELING MUCH BETTER. Pt states prior to the above, pt was sitting and talking for some time and feeling great. has minimally been OOB. martínez cath in place - clear UOP. Has been drinking water but large amount emesis. is starting on oxy for pain management. Baby is a great BF Objective: 06/28/18 07:48 Patient ABO/Rh A POSITIVE 06/28/18 07:48 Temp Pulse Resp BP Pulse Ox 36.2 C 76 18 105/71 91 L 06/28/18 17:00 06/28/18 17:00 06/28/18 17:00 06/28/18 17:00 06/28/18 19:00 Uterine Position/Fundal Height: Umbilicus -1 Uterine Tone: Firm Physical Exam - Physical Exam Abdomen: non-tender (approp post op tenderness), soft, dressing (CDI) Extremities: non-tender, pedal edema (none) Skin: normal color, warm/dry Neuro/Psych: alert, normal mood/affect
[2018-06-29] MEDS: oxyCODONE IR 5 MG TAB PO PRN ×6 (03:17→23:33)
[2018-06-29] MEDS: KETOROLAC 30 MG/1 ML SDV IVP SCH (05:35)
[2018-06-29] MEDS: ACETAMINOPHEN 325 MG TAB PO SCH ×4 (05:35→23:33)
[2018-06-29] MEDS: SENNOSIDES/DOCUSATE SODIUM TAB PO SCH ×2 (07:25→19:27)
--- NOTE | 2018-06-29 10:39 | OBPP ---
Progress Note Assessment/Plan: Assessment: 37 y/o POD #1 s/p Repeat LTCS doing well. Plan: Started iron today. Encourage ambulation and po pain meds. support and routine POC. 06/29/18 10:38 Subjective/ Course: 06/28/18 21:05 PT SEEN APPROX 6:10 AFTER N/V AT 5:30.....WAS GIVEN ZOFRAN AND O2 AND FEELING MUCH BETTER. Pt states prior to the above, pt was sitting and talking for some time and feeling great. has minimally been OOB. martínez cath in place - clear UOP. Has been drinking water but large amount emesis. is starting on oxy for pain management. Baby is a great BF 06/29/18 10:35 Pt is doing well this am. She has good pain control with PO meds. She has ambulated and voided without difficulty and has min lochia. Baby is doing well and she is breast feeding. Objective: 06/29/18 05:50 Patient ABO/Rh A POSITIVE 06/28/18 07:48 Temp Pulse Resp BP Pulse Ox 36.4 C 77 20 100/62 93 06/29/18 03:50 06/29/18 06:00 06/29/18 06:00 06/29/18 03:50 06/29/18 06:00 Uterine Position/Fundal Height: Umbilicus -2 Uterine Tone: Firm Physical Exam - Physical Exam General Appearance: WD/WN, alert, no apparent distress Neck: non-tender, full range of motion, supple Respiratory: chest non-tender, lungs clear, normal breath sounds Cardiac/Chest: regular rate, rhythm Abdomen: normal bowel sounds, incision (c/d/i) Extremities: swelling (tr), Rachael's sign (neg)
--- NOTE | 2018-06-29 10:55 | SOAPPROG ---
SOAP Progress Note Assessment/Plan: Assessment: doing well, manageable pain, no side effects, no headaches Plan:discharge per OB 06/29/18 10:53 Objective: Vital Signs Temp Pulse Resp BP Pulse Ox 36.4 C 77 20 100/62 93 06/29/18 03:50 06/29/18 06:00 06/29/18 06:00 06/29/18 03:50 06/29/18 06:00 Laboratory Results 06/29/18 05:50 06/28/18 06/29/18 06/30/18 05:59 05:59 05:59 Intake Total 4100 Output Total 4750 Balance -650 Physical Exam - Physical Exam General Appearance: WD/WN, alert, no apparent distress EENT: PERRL/EOMI, normal ENT inspection, pharynx normal, TMs normal Neck: non-tender, full range of motion, supple, normal inspection Cardiac/Chest: normal peripheral pulses, regular rate, rhythm Pelvic Exam: deferred Rectal: deferred Back: Normal inspection Skin: normal color, warm/dry Lymphatic: no adenopathy Extremities: normal range of motion, non-tender, normal inspection, normal capillary refill Neuro/Psych: no motor/sensory deficits, alert, normal mood/affect, oriented x 3 ICD10 Worksheet Patient Problems: Problems Problem Status Onset S/P repeat low transverse Acute
[2018-06-29] MEDS: IBUPROFEN 600 MG TAB PO SCH ×3 (11:34→23:33)
[2018-06-29] MEDS: FERRO-SEQUELS 65 MG TAB.ER PO SCH (11:34)
[2018-06-30] MEDS: oxyCODONE IR 5 MG TAB PO PRN ×2 (03:51→08:34)
[2018-06-30] MEDS: ACETAMINOPHEN 325 MG TAB PO SCH ×4 (05:50→23:39)
[2018-06-30] MEDS: IBUPROFEN 600 MG TAB PO SCH ×4 (05:50→23:39)
[2018-06-30] MEDS: FERRO-SEQUELS 65 MG TAB.ER PO SCH (08:40)
[2018-06-30] MEDS: SENNOSIDES/DOCUSATE SODIUM TAB PO SCH (08:41)
--- NOTE | 2018-06-30 13:43 | OBPP ---
Progress Note Assessment/Plan: Assessment: POD 2 from RCS x3 DODD better with recent ibu/tyl and is going to try to avoid the oxy anemia - on iron Plan: routine care, iron 06/28/18 21:03 06/30/18 13:30 Subjective/ Course: 06/28/18 21:05 PT SEEN APPROX 6:10 AFTER N/V AT 5:30.....WAS GIVEN ZOFRAN AND O2 AND FEELING MUCH BETTER. Pt states prior to the above, pt was sitting and talking for some time and feeling great. has minimally been OOB. martínez cath in place - clear UOP. Has been drinking water but large amount emesis. is starting on oxy for pain management. Baby is a great BF 06/29/18 10:35 Pt is doing well this am. She has good pain control with PO meds. She has ambulated and voided without difficulty and has min lochia. Baby is doing well and she is breast feeding. 06/30/18 13:31 Pt feels better after recent ibu/tyl combo, seems to think HAs are correlated with oxy dosing - will try to avoid. Baby has been latching well - has ok suction but might be tongue-tied - peds will eval. urinating fine. would rather have a bit of pain than HAs. Objective: 06/29/18 05:50 Patient ABO/Rh A POSITIVE 06/28/18 07:48 Temp Pulse Resp BP Pulse Ox 36.8 C 77 16 105/67 96 06/30/18 08:45 06/30/18 08:45 06/30/18 08:45 06/30/18 08:45 06/30/18 08:45 Uterine Position/Fundal Height: Umbilicus -1 Uterine Tone: Firm Physical Exam - Physical Exam Abdomen: non-tender (approp post op tenderness), soft, incision (CDI) Extremities: non-tender, pedal edema (mild) Skin: normal color, warm/dry Neuro/Psych: alert, normal mood/affect
[2018-06-30] MEDS: HYDROmorphONE/DILAUDID 2 MG TAB PO PRN ×2 (14:33→23:03)
[2018-07-01] MEDS: HYDROmorphONE/DILAUDID 2 MG TAB PO PRN ×2 (03:50→08:45)
[2018-07-01] MEDS: SENNOSIDES/DOCUSATE SODIUM TAB PO SCH ×2 (05:00→10:51)
[2018-07-01] MEDS: ACETAMINOPHEN 325 MG TAB PO SCH (06:02)
[2018-07-01] MEDS: IBUPROFEN 600 MG TAB PO SCH (06:02)
[2018-07-01 08:21] VITALS: BP 120/80
[2018-07-01] MEDS: FERRO-SEQUELS 65 MG TAB.ER PO SCH (08:45)
--- NOTE | 2018-07-01 08:54 | OBPP ---
Progress Note Assessment/Plan: Assessment: 37 G4now P3, POD#3 s/p R-C/S x 3, doing well, mild anemia. Plan: DC home, std C/S post op instructions reviewed, including ssx pp depression. See dc summary. FU 2 wk incision & mood check. Jennifer Gabriel MD, FACOG 07/01/18 08:52 Subjective/ Course: 06/28/18 21:05 PT SEEN APPROX 6:10 AFTER N/V AT 5:30.....WAS GIVEN ZOFRAN AND O2 AND FEELING MUCH BETTER. Pt states prior to the above, pt was sitting and talking for some time and feeling great. has minimally been OOB. martínez cath in place - clear UOP. Has been drinking water but large amount emesis. is starting on oxy for pain management. Baby is a great BF 06/29/18 10:35 Pt is doing well this am. She has good pain control with PO meds. She has ambulated and voided without difficulty and has min lochia. Baby is doing well and she is breast feeding. 06/30/18 13:31 Pt feels better after recent ibu/tyl combo, seems to think HAs are correlated with oxy dosing - will try to avoid. Baby has been latching well - has ok suction but might be tongue-tied - peds will eval. urinating fine. would rather have a bit of pain than HAs. 07/01/18 09:27 Pt doing well. Ambulating, voiding, tyler reg diet, + flatus and BM. Pain well controlleed with the addition of dilaudid. BF going well. No hx of depression, though does has a baseline of anxiety. Objective: 06/29/18 05:50 Patient ABO/Rh A POSITIVE 06/28/18 07:48 Temp Pulse Resp BP Pulse Ox 36.6 C 77 16 120/80 96 07/01/18 08:00 07/01/18 08:00 07/01/18 08:00 07/01/18 08:00 07/01/18 08:00 gen - pleasant, NAD CV - RRR chest - CTAB abd - soft, + BS, fundus firm at u-2, inc - c/d/i with steristrips ext - trace BLE edema, no calf tenderness Uterine Position/Fundal Height: Umbilicus -2 Uterine Tone: Firm
--- NOTE | 2018-07-01 09:41 | OBGCSDC ---
General Delivery Information - General Info : 3 Para: 3 Abortions: 0 Type: Repeat L&D Analgesia/Anesthesia Type: IV Narcotics, Spinal Admission Date: 06/28/18 Labs: Patient ABO/Rh A POSITIVE 06/28/18 07:48 Hct 32.3 % (38.0-47.0) L 06/29/18 05:50 - Hospital Course : 06/28/18 21:05 PT SEEN APPROX 6:10 AFTER N/V AT 5:30.....WAS GIVEN ZOFRAN AND O2 AND FEELING MUCH BETTER. Pt states prior to the above, pt was sitting and talking for some time and feeling great. has minimally been OOB. martínez cath in place - clear UOP. Has been drinking water but large amount emesis. is starting on oxy for pain management. Baby is a great BF 06/29/18 10:35 Pt is doing well this am. She has good pain control with PO meds. She has ambulated and voided without difficulty and has min lochia. Baby is doing well and she is breast feeding. 06/30/18 13:31 Pt feels better after recent ibu/tyl combo, seems to think HAs are correlated with oxy dosing - will try to avoid. Baby has been latching well - has ok suction but might be tongue-tied - peds will eval. urinating fine. would rather have a bit of pain than HAs. 07/01/18 09:27 Pt doing well. Ambulating, voiding, tyler reg diet, + flatus and BM. Pain well controlleed with the addition of dilaudid. BF going well. No hx of depression, though does has a baseline of anxiety. - Delivery Providers Surgeon: Basilia Duncan Canvas Baster: Lily Lopez Anesthesiologist: Agustin Burrell - Delivery Number of Prior Sections: 2 Indications for Current Section: Elective/Repeat Surgical Procedures: Scheduled, Low Transverse Intra-op Complications: None EBL: 1000 Data ELI: 07/02/18 Gestational Age: 39 week(s) and 6 day(s) Marquez Delivery Date: 06/28/18 Delivery Time: 09:42 Sex of : Male Weight (gm): 8960 kg Score (1 Min): 8 Score (5 Min): 9 Discharge Information - Discharge Information Prescriptions: RX: HYDROmorphone HCL [Dilaudid 2 mg (*)] 2 mg PO Q4HRS PRN #28 tab PRN Reason: Pain, Severe Able To Take Po RX: Ibuprofen [Motrin (*)] 600 mg PO Q6H #30 tab RX: Iron/Vit C/Docusate [Cathy-Sequels 65 mg (*)] 1 each PO DAILY #30 tab.er Condition: Good Instruction/Follow Up: See Instruction Sheet, Two Weeks, Six Weeks
== END 2018-07-01 11:35 | disposition home or self-care (01) | DRG 788 ==
LOC: FLD 07:04 → FOB 13:00
PROVIDERS: ADMIT Obstetrics & Gynecology; ATTEND Obstetrics & Gynecology
PROC: 10D00Z1 Extraction of Products of Conception, Low, Open Approach (ICD-10-PCS; principal; 2018-06-28)
DX: O34.219 Maternal care for unspecified type scar from previous cesarean delivery (principal); Z37.0 Single live birth; Z3A.39 39 weeks gestation of pregnancy; O99.284 Endocrine, nutritional and metabolic diseases complicating childbirth; E03.9 Hypothyroidism, unspecified; O99.52 Diseases of the respiratory system complicating childbirth; J45.909 Unspecified asthma, uncomplicated; O99.03 Anemia complicating the puerperium; D64.9 Anemia, unspecified
CPT/HCPCS: J0690; J1100; J1885; J2250; J2274; J2405; J2550; J2590; J2765; J3010